=== PATIENT | female | born 1995 | race Caucasian/White ===

== ENCOUNTER 2022-12-11 17:13 | Outpatient (OUT) | payer BC, SELFPAY ==
[2022-12-11 15:40] VITALS: BP 106/65; PULSE 120; PULSE 129
[2022-12-11 16:30] LABS: Bilirubin Urine NEGATIVE (NEGATIVE); Blood Urine NEGATIVE (NEGATIVE); Clarity Urine CLEAR (CLEAR); Color Urine YELLOW (YELLOW); Glucose Urine UA NEGATIVE (NEGATIVE); Ketones Urine 15 mg/dL (NEGATIVE); Leukocyte Esterase Urine NEGATIVE (NEGATIVE); Nitrite Urine NEGATIVE (NEGATIVE); Protein Urine NEGATIVE (NEG/TRACE); Urobilinogen Urine 0.2 EU/dL (0.2-1.0)
[2022-12-11 16:36] LABS: Urine Microscopic Indicated NO
--- NOTE | 2022-12-11 18:27 | PC.NURSE ---
[address] Alanis's request. SVE 1/thick/posterior, no bleeding or discharge noted. labor precautions given to patient, verbalizes understanding. discharge instructions given and patient leaves per self
--- NOTE | 2022-12-11 18:29 | PC.NURSE ---
1635 FHR assessment: Baseline 150bpm Moderate variability Present accelerations Absent decelerations 2 contractions noted on monitor per external monitor. abdomen palpates mild, patient denies pain or discomfort.
== END 2022-12-11 17:15 | disposition home or self-care (01) ==
LOC: FBCO 17:14
PROVIDERS: Obstetrics & Gynecology; PCP Family Medicine; Visit Provider Obstetrics & Gynecology
DX: O26.899 Other specified pregnancy related conditions, unspecified trimester (principal)
CPT/HCPCS: 59025; 81003; G0378; G0379

== ENCOUNTER 2022-12-21 13:35 | Observation (INO) | payer BC, SELFPAY ==
[2022-12-21 14:04] VITALS: BP 106/66; PULSE 106
[2022-12-21 14:22] LABS: Bilirubin Urine NEGATIVE (NEGATIVE); Blood Urine NEGATIVE (NEGATIVE); Clarity Urine CLEAR (CLEAR); Color Urine LT. YELLOW (YELLOW); Glucose Urine UA NEGATIVE (NEGATIVE); Ketones Urine NEGATIVE (NEGATIVE); Leukocyte Esterase Urine SMALL (NEGATIVE); Nitrite Urine NEGATIVE (NEGATIVE); Protein Urine NEGATIVE (NEG/TRACE); Specific Gravity Urine <=1.005 (1.005-1.025); Urobilinogen Urine 0.2 EU/dL (0.2-1.0); pH Urine 6.5 (5.0-9.0)
[2022-12-21 14:25] LABS: Urine Microscopic Indicated YES
[2022-12-21 14:34] LABS: Bacteria Urine SMALL #/HPF (NONE SEEN); Cast Seen? NONE SEEN #/LPF (NONE SEEN); Crystals Seen? None Seen #/HPF (None Seen); Mucus Urine NONE SEEN (NONE SEEN); Squamous Epithelial Cell Urine MODERATE #/LPF (NONE/RARE); Urine Culture Indicated YES
== END 2022-12-21 15:51 | disposition home or self-care (01) ==
LOC: FBC 13:39
PROVIDERS: Admitting Provider Obstetrics & Gynecology; PCP Family Medicine; Visit Provider Obstetrics & Gynecology
DX: O26.899 Other specified pregnancy related conditions, unspecified trimester (principal); R10.9 Unspecified abdominal pain; Z3A.00 Weeks of gestation of pregnancy not specified
CPT/HCPCS: 59025; 81003; 81015; 87086; G0378; G0379

== ENCOUNTER 2022-12-28 20:50 | Outpatient (REF) | payer BC, SELFPAY | END 2022-12-28 20:51 | disposition home or self-care (01) | LOC: LAB 20:50 | PROVIDERS: PCP Family Medicine; Visit Provider Obstetrics & Gynecology | DX: Z34.93 Encounter for supervision of normal pregnancy, unspecified, third trimester (principal) | CPT/HCPCS: 87081 ==

== ENCOUNTER 2023-01-03 17:39 | Outpatient (OUT) | payer BC, SELFPAY ==
[2023-01-03 18:00] VITALS: BP 110/61; PULSE 118; RESP 16
[2023-01-03 18:09] LABS: Bilirubin Urine NEGATIVE (NEGATIVE); Blood Urine NEGATIVE (NEGATIVE); Clarity Urine CLEAR (CLEAR); Color Urine LT. YELLOW (YELLOW); Glucose Urine UA NEGATIVE (NEGATIVE); Ketones Urine NEGATIVE (NEGATIVE); Leukocyte Esterase Urine TRACE (NEGATIVE); Nitrite Urine NEGATIVE (NEGATIVE); Protein Urine NEGATIVE (NEG/TRACE); Specific Gravity Urine 1.015 (1.005-1.025); Urobilinogen Urine 0.2 EU/dL (0.2-1.0); pH Urine 6.5 (5.0-9.0)
[2023-01-03 18:12] LABS: Urine Microscopic Indicated YES
[2023-01-03 18:19] LABS: Amnisure NEGATIVE (NEGATIVE)
[2023-01-03 18:22] LABS: Bacteria Urine TRACE #/HPF (NONE SEEN); Mucus Urine TRACE (NONE SEEN); RBC Urine 0-2 #/HPF (0-2); WBC Urine 0-2 #/HPF (NONE SEEN)
[2023-01-03 18:23] LABS: Cast Seen? NONE SEEN #/LPF (NONE SEEN); Crystals Seen? None Seen #/HPF (None Seen); Squamous Epithelial Cell Urine FEW #/LPF (NONE/RARE); Urine Culture Indicated NO
--- NOTE | 2023-01-03 18:55 | PC.NURSE ---
reviewed labor precautions, reviewed when to return to hospital or call if unsure and wanting guidance. encouraged oral hydration and rest. patient verbalizes understanding
== END 2023-01-03 19:57 | disposition home or self-care (01) ==
LOC: FBC 19:13 → FBCO 20:01
PROVIDERS: PCP Family Medicine; Visit Provider Obstetrics & Gynecology
DX: O26.893 Other specified pregnancy related conditions, third trimester (principal); Z3A.36 36 weeks gestation of pregnancy
CPT/HCPCS: 81003; 81015; 84112; G0378; G0379

== ENCOUNTER 2023-01-12 18:25 | Inpatient (IN) | payer BC, SELFPAY ==
[2023-01-12 18:50] VITALS: BP 112/71; PULSE 103
[2023-01-12 19:00] LABS: Bilirubin Urine NEGATIVE (NEGATIVE); Blood Urine SMALL (NEGATIVE); Clarity Urine CLEAR (CLEAR); Color Urine LT. YELLOW (YELLOW); Glucose Urine UA NEGATIVE (NEGATIVE); Ketones Urine NEGATIVE (NEGATIVE); Leukocyte Esterase Urine MODERATE (NEGATIVE); Nitrite Urine NEGATIVE (NEGATIVE); Protein Urine NEGATIVE (NEG/TRACE); Specific Gravity Urine 1.025 (1.005-1.025); Urobilinogen Urine 0.2 EU/dL (0.2-1.0); pH Urine 6.5 (5.0-9.0)
[2023-01-12 19:04] LABS: Urine Microscopic Indicated YES
[2023-01-12 19:07] LABS: Bacteria Urine LARGE #/HPF (NONE SEEN); Crystals Seen? None Seen #/HPF (None Seen); Mucus Urine LARGE (NONE SEEN); RBC Urine 20-50 #/HPF (0-2); Squamous Epithelial Cell Urine MANY #/LPF (NONE/RARE)
[2023-01-12 19:08] LABS: Amnisure NEGATIVE (NEGATIVE); Cast Seen? NONE SEEN #/LPF (NONE SEEN); Urine Culture Indicated YES
--- NOTE | 2023-01-12 19:16 | W.PC.ACHO ---
Registration Status: ADM [place] Primary Language: Preferred Language: Report given to Ilana Jones RN. Care relinquished.
--- NOTE | 2023-01-12 20:24 | W.PC.ACHO ---
Registration Status: ADM [place] Primary Language: Preferred Language: Report received from Roger PEDRO RN at 0710.
[2023-01-13] VITALS (50 sets, daily range): BP systolic 91–118; BP diastolic 53–80; PULSE 68–118; RESP 16; TEMP 35.9–36.6
--- NOTE | 2023-01-13 07:18 | W.PC.ACHO ---
Registration Status: ADM [place] Primary Language: Preferred Language: Report given to Roger Pihlip RN. Active Medications Generic Name Dose Route Start Last Admin Trade Name Freq PRN Reason Stop Dose Admin Acetaminophen 1,000 mg 01/12/23 21:59 Acetaminophen 500 Mg Tablet PO Q6H PRN Pain
--- NOTE | 2023-01-13 08:14 | P.OBHP_ITS ---
OB - H&P: HPI History of Present Illness Chief complaint: Contractions : 2 Para: 1 Gestational age based on last menstrual period: iup at 38 1/7wks Narrative: advanced dilation History of Present Dating criteria: LMP confirmed by 1st trimester US care: good care Ultrasounds: normal 1st trimester US and normal mid trimester US Medical complications OB: none Review of Systems ROS Status of ROS 10 or more systems reviewed and unremarkable except as noted in history and below PFSH PFSH Medical History Surgical History (Updated 01/12/23 @ 21:36 by Kalie Jones) Family History (Updated 01/12/23 @ 21:38 by Kalie Jones) Mother Family history of hypertension Grandmother Family history of hypertension Family history of COPD (chronic obstructive pulmonary disease) Father Family history of stroke Social History (Updated 12/11/22 @ 16:12 by Lindy Cook) Within the past year, how often did you have a drink containing alcohol: never Within the past year, how often did you have six or more drinks on one occasion: never Score interpretation: A score less than 3 is consistent with normal alcohol consumption. Smoking status: Never smoker Non-prescribed substance use: denies use Meds Home Medications and Allergies Home Medications Medication Instructions Recorded Confirmed Type bupropion HCl 300 mg 24 hr tablet, 300 mg PO DAILY 12/11/22 01/12/23 History extended release citalopram 10 mg tablet 10 mg PO DAILY 12/11/22 01/12/23 History metoclopramide HCl 10 mg tablet 10 mg PO DAILY 12/11/22 01/12/23 History polysaccharide iron complex 180 mg 180 mg PO DAILY 12/11/22 01/12/23 History iron capsule (Pro Fe) Allergies Allergy/AdvReac Type Severity Reaction Status Date / Time amoxicillin Allergy Intermediate Rash Verified 01/12/23 21:33 tetracycline Allergy Mild Rash Verified 01/13/23 08:18 Exam Constitutional Vital Signs, click to edit/add: Last Vital Signs Temp 97.2 F L 01/13/23 07:36 Pulse 85 01/13/23 07:36 BP 112/70 01/13/23 07:36 Documenting provider has reviewed patient's vital signs: yes Common normals: no apparent distress Respiratory Common normals: normal respiratory effort and clear to auscultation bilaterally Cardio Common normals: regular rate and regular rhythm GI Common normals: Normal to inspection, nondistended, normoactive bowel sounds present Common normals: no CVA tenderness Extremity Common normals: no clubbing, cyanosis or edema and no calf tenderness Results Labs Labs: Urine 01/12/23 Range/Units 18:40 Urine Color Lt. yellow (YELLOW) Urine Clarity Clear (CLEAR) Urine pH 6.5 (5.0-9.0) Ur Specific [place] 1.025 (1.005-1.025) Urine Protein Negative (NEG/TRACE) mg/dL Urine Glucose (UA) Negative (NEGATIVE) mg/dL OB - A/P Assessment and Plan (1) Intrauterine normal : Plan iup at 38 1/7wks, advanced dilation-pit augmentation, arom, gbbs neg, routine labs, iv
[2023-01-13 08:59] LABS: Hematocrit 27.9 % (36.0-48.0); Mean Corpuscular HGB Conc 32.3 g/dL (29.9-35.2); Mean Corpuscular Hemoglobin 26.5 pg (26.7-34.0); Mean Corpuscular Volume 82.1 fL (81.0-99.0); Mean Platelet Volume 9.8 fL (9.5-13.5); Platelet Count 357 10^3/uL (150-450); Red Cell Distribution Width 13.5 % (11.0-15.0)
[2023-01-13] MEDS: OXYTOCIN 10 UNIT in 0.9 % SODIUM CHLORIDE 500 ML 6.012 UNIT IV (09:35)
[2023-01-13] MEDS: ROPIVACAINE HCL/PF 400 MG/200 ML PREMIX 6 MG EPIDURAL (10:50)
[2023-01-13] MEDS: 0.9 % SODIUM CHLORIDE 1,000 ML 1000 ML IV (10:50)
--- NOTE | 2023-01-13 15:09 | PM.OBPRCVD ---
Procedure Induction method: none Delivery augmentation: rupture of membranes and pitocin Delivery monitor: external FHT and external uterine Route of delivery: Episiotomy Description: none Laceration description: perineal - 2nd degree Delivery repair: Vicryl Estimated blood loss (mL): 250 Anesthesia type: Epidural Disposition: floor
[2023-01-13] MEDS: IBUPROFEN 600 MG TABLET PO ×2 (16:43→23:34)
--- NOTE | 2023-01-13 16:57 | PC.NURSE ---
epidural catheter removed, blue tip intact
--- NOTE | 2023-01-13 19:11 | W.PC.ACHO ---
Registration Status: ADM IN Primary Language: Portuguese Preferred Language: Portuguese Report given to Ilana Jones RN. Care relinquished. Active Medications Generic Name Dose Route Start Last Admin Trade Name Dot PRN Reason Stop Dose Admin Acetaminophen 1,000 mg 01/12/23 21:59 Acetaminophen 500 Mg Tablet PO Q6H PRN Pain Acetaminophen 650 mg 01/13/23 15:10 Acetaminophen 325 Mg Tablet PO Q6H PRN Mild Pain Al Hydroxide/Mg Hydroxide 2,400 mg 01/13/23 15:10 Magnesium Hydroxide 2,400 Mg/10 Ml Oral.Susp PO Q6H PRN Dyspepsia Benzocaine/Menthol 1 applic 01/13/23 15:10 Benzocaine/Menthol 85 Gram Bottle TOPICAL ONCE PRN Pain Carboprost Tromethamine 250 mcg 01/13/23 08:12 Carboprost Tromethamine 250 Mcg/Ml 1 Ml Vial IM Q15M PRN Bleeding Diphenhydramine HCl 25 mg 01/13/23 08:55 Diphenhydramine Hcl 50 Mg/Ml (1ml) Vial IV Q6H PRN Itching Docusate Sodium 100 mg 01/14/23 09:00 Docusate Sodium 100 Mg Capsule PO BID DIVINE Ephedrine Sulfate 5 mg 01/13/23 08:55 Ephedrine Sulfate 50 Mg/Ml Vial IV Q5M PRN Blood Pressure - Low Fentanyl Citrate 100 mcg 01/13/23 08:55 Fentanyl Citrate/Pf 100 Mcg/2 Ml Vial EPIDURAL Q4H PRN Pain Sodium Chloride 1,000 mls @ 125 mls/hr 01/13/23 08:15 Sodium Chloride 0.9% 1,000 Ml IV .Q8H DIVINE Oxytocin 10 unit/ Sodium 501 mls @ 6.012 mls/hr 01/13/23 08:15 01/13/23 09:35 Chloride IV 2 milliunit/min Q24H DIVINE 6.012 mls/hr Administration 2 MILLIUNIT/MIN Ropivacaine/Sodium Chloride 400 mg in 200 mls @ 6 mls/hr 01/13/23 09:00 01/13/23 10:50 Naropin 0.2% 400 Mg/200 Ml Bag EPIDURAL 6 mls/hr Q24H DIVINE 6 mls/hr Administration Oxytocin 20 unit/ Sodium 1,002 mls @ 125 mls/hr 01/13/23 15:15 01/13/23 15:30 Chloride IV 01/13/23 23:14 125 mls/hr Q8H DIVINE 125 mls/hr Administration Ibuprofen 600 mg 01/13/23 15:10 01/13/23 16:43 Ibuprofen 600 Mg Tablet PO 600 mg Q6H PRN Administration Moderate Pain Lidocaine 5 ml 01/13/23 08:12 Lidocaine Viscous 2% 15 Ml Topical Solution TOPICAL ONCE PRN Pain Lidocaine 1 ml 01/13/23 08:12 Lidocaine Hcl 1% 200 Mg/20 Ml Mdv INJ ONCE PRN Pain Lidocaine 5 ml 01/13/23 08:55 Lidocaine Hcl 2% Pf 100 Mg/5 Ml Vial INJ Q1H PRN Pain Methylergonovine Maleate 0.2 mg 01/13/23 08:12 Methylergonovine Maleate 0.2 Mg/Ml Ampule IM ONCE PRN Uterine Contractility/Contract Methylergonovine Maleate 0.2 mg 01/13/23 08:12 Methylergonovine Maleate 0.2 Mg Tablet PO Q4H PRN Uterine Contractility/Contract Misoprostol 600 mcg 01/13/23 08:12 Misoprostol 100 Mcg Tablet PO ONCE PRN Uterine Bleeding Misoprostol 800 mcg 01/13/23 08:12 Misoprostol 100 Mcg Tablet SL ONCE PRN Uterine Bleeding Misoprostol 1,000 mcg 01/13/23 08:12 Misoprostol 100 Mcg Tablet NC ONCE PRN Uterine Bleeding Nalbuphine HCl 10 mg 01/13/23 08:12 Nalbuphine Hcl 10 Mg/Ml Ampule IV Q3H PRN Pain Ondansetron HCl 4 mg 01/13/23 08:12 Ondansetron Pf 4 Mg/2 Ml Vial IV Q6H PRN Nausea And Vomiting Ondansetron HCl 4 mg 01/13/23 08:12 Ondansetron 4 Mg Rapdis Tablet SL Q6H PRN Nausea And Vomiting Oxytocin 10 unit 01/13/23 08:12 Oxytocin 100 Unit/10 Ml Vial IM ONCE PRN Uterine Bleeding Senna 17.2 mg 01/13/23 20:00 Sennosides 8.6 Mg Tablet PO QHS PRN Constipation Simethicone 80 mg 01/13/23 15:10 Simethicone 80 Mg Tab.Chew PO QID PRN Abdominal Distention Temazepam 15 mg 01/13/23 20:00 Temazepam 15 Mg Capsule PO BEDTIME PRN Sleep Witch Marli/Glycerin 1 each 01/13/23 15:10 Glycerin/Witch Marli 1 Each Jar TOPICAL ONCE PRN Pain Diet Category Date Time Status Regular Consistency Diet Diet 01/13/23 Dinner Active Consults Category Date Time Status Consult to Anesthesiology Routine Cons 01/13/23 Ordered IV Insertion/Site Date of IV Line Insertion [20g 01/13/23 right Hand] IV Insertion Time [20g right 08:30 Hand] Neurology Patient orientation (short person,place,time,situation list) Catheter Date Urinary Catheter Removed 01/13/23
[2023-01-13] MEDS: ACETAMINOPHEN 325 MG TABLET 650 MG PO (20:33)
[2023-01-14 03:10] VITALS: RESP 14; RESP 16
[2023-01-14] MEDS: ACETAMINOPHEN 325 MG TABLET 650 MG PO (03:10)
[2023-01-14 03:13] VITALS: TEMP 36.1
[2023-01-14 03:14] VITALS: BP 104/57; PULSE 65
[2023-01-14 06:14] LABS: Basophils Percent Auto 0.3 % (0.2-2.0); Eosinophils Absolute Auto 0.1 10^3/uL (0.0-0.7); Eosinophils Percent Auto 0.6 % (0.9-7.0); Hematocrit 26.2 % (36.0-48.0); Hemoglobin 8.3 g/dL (12.0-16.0); Immature Granulocytes Abs Auto 0.06 10^3/uL (0.00-0.03); Immature Granulocytes Pct Auto 0.5 % (0.0-0.5); Lymphocytes Absolute Auto 3.1 10^3/uL (1.2-3.8); Mean Corpuscular HGB Conc 31.7 g/dL (29.9-35.2); Mean Corpuscular Hemoglobin 26.3 pg (26.7-34.0); Mean Corpuscular Volume 83.2 fL (81.0-99.0); Mean Platelet Volume 9.9 fL (9.5-13.5); Monocytes Absolute Auto 0.6 10^3/uL (0.3-0.8); Neutrophils Absolute Auto 8.1 10^3/uL (1.4-6.5); Neutrophils Percent Auto 67.6 % (43.0-75.0); Platelet Count 304 10^3/uL (150-450); Red Blood Count 3.15 10^6/uL (4.20-5.40); Red Cell Distribution Width 13.5 % (11.0-15.0)
--- NOTE | 2023-01-14 07:20 | PC.NURSE ---
Care assumed after bedside report.
--- NOTE | 2023-01-14 07:27 | W.PC.ACHO ---
Registration Status: ADM IN Primary Language: Paraguayan Preferred Language: Paraguayan report given 0715 Active Medications Generic Name Dose Route Start Last Admin Trade Name Freq PRN Reason Stop Dose Admin Acetaminophen 1,000 mg 01/12/23 21:59 Acetaminophen 500 Mg Tablet PO Q6H PRN Pain Acetaminophen 650 mg 01/13/23 15:10 01/14/23 03:10 Acetaminophen 325 Mg Tablet PO 650 mg Q6H PRN Administration Mild Pain Al Hydroxide/Mg Hydroxide 2,400 mg 01/13/23 15:10 Magnesium Hydroxide 2,400 Mg/10 Ml Oral.Susp PO Q6H PRN Dyspepsia Benzocaine/Menthol 1 applic 01/13/23 15:10 Benzocaine/Menthol 85 Gram Bottle TOPICAL ONCE PRN Pain Carboprost Tromethamine 250 mcg 01/13/23 08:12 Carboprost Tromethamine 250 Mcg/Ml 1 Ml Vial IM Q15M PRN Bleeding Diphenhydramine HCl 25 mg 01/13/23 08:55 Diphenhydramine Hcl 50 Mg/Ml (1ml) Vial IV Q6H PRN Itching Docusate Sodium 100 mg 01/14/23 09:00 Docusate Sodium 100 Mg Capsule PO BID DIVINE Ephedrine Sulfate 5 mg 01/13/23 08:55 Ephedrine Sulfate 50 Mg/Ml Vial IV Q5M PRN Blood Pressure - Low Fentanyl Citrate 100 mcg 01/13/23 08:55 Fentanyl Citrate/Pf 100 Mcg/2 Ml Vial EPIDURAL Q4H PRN Pain Sodium Chloride 1,000 mls @ 125 mls/hr 01/13/23 08:15 Sodium Chloride 0.9% 1,000 Ml IV .Q8H DIVINE Oxytocin 10 unit/ Sodium 501 mls @ 6.012 mls/hr 01/13/23 08:15 01/13/23 09:35 Chloride IV 2 milliunit/min Q24H DIVINE 6.012 mls/hr Administration 2 MILLIUNIT/MIN Ropivacaine/Sodium Chloride 400 mg in 200 mls @ 6 mls/hr 01/13/23 09:00 01/13/23 10:50 Naropin 0.2% 400 Mg/200 Ml Bag EPIDURAL 6 mls/hr Q24H DIVINE 6 mls/hr Administration Ibuprofen 600 mg 01/13/23 15:10 01/13/23 23:34 Ibuprofen 600 Mg Tablet PO 600 mg Q6H PRN Administration Moderate Pain Lidocaine 5 ml 01/13/23 08:12 Lidocaine Viscous 2% 15 Ml Topical Solution TOPICAL ONCE PRN Pain Lidocaine 1 ml 01/13/23 08:12 Lidocaine Hcl 1% 200 Mg/20 Ml Mdv INJ ONCE PRN Pain Lidocaine 5 ml 01/13/23 08:55 Lidocaine Hcl 2% Pf 100 Mg/5 Ml Vial INJ Q1H PRN Pain Methylergonovine Maleate 0.2 mg 01/13/23 08:12 Methylergonovine Maleate 0.2 Mg/Ml Ampule IM ONCE PRN Uterine Contractility/Contract Methylergonovine Maleate 0.2 mg 01/13/23 08:12 Methylergonovine Maleate 0.2 Mg Tablet PO Q4H PRN Uterine Contractility/Contract Misoprostol 600 mcg 01/13/23 08:12 Misoprostol 100 Mcg Tablet PO ONCE PRN Uterine Bleeding Misoprostol 800 mcg 01/13/23 08:12 Misoprostol 100 Mcg Tablet SL ONCE PRN Uterine Bleeding Misoprostol 1,000 mcg 01/13/23 08:12 Misoprostol 100 Mcg Tablet UT ONCE PRN Uterine Bleeding Nalbuphine HCl 10 mg 01/13/23 08:12 Nalbuphine Hcl 10 Mg/Ml Ampule IV Q3H PRN Pain Ondansetron HCl 4 mg 01/13/23 08:12 Ondansetron Pf 4 Mg/2 Ml Vial IV Q6H PRN Nausea And Vomiting Ondansetron HCl 4 mg 01/13/23 08:12 Ondansetron 4 Mg Rapdis Tablet SL Q6H PRN Nausea And Vomiting Oxytocin 10 unit 01/13/23 08:12 Oxytocin 100 Unit/10 Ml Vial IM ONCE PRN Uterine Bleeding Senna 17.2 mg 01/13/23 20:00 Sennosides 8.6 Mg Tablet PO QHS PRN Constipation Simethicone 80 mg 01/13/23 15:10 Simethicone 80 Mg Tab.Chew PO QID PRN Abdominal Distention Temazepam 15 mg 01/13/23 20:00 Temazepam 15 Mg Capsule PO BEDTIME PRN Sleep Witch Marli/Glycerin 1 each 01/13/23 15:10 Glycerin/Witch Marli 1 Each Jar TOPICAL ONCE PRN Pain Diet Category Date Time Status Regular Consistency Diet Diet 01/13/23 Dinner Active IV Insertion/Site Date of IV Line Insertion [20g 01/13/23 right Hand] IV Insertion Time [20g right 08:30 Hand] Neurology Patient orientation (short person,place,time,situation list) Respiratory Oxygen Delivery Method Room Air Oxygen Delivery Method Room Air Catheter Date Urinary Catheter Removed 01/13/23
--- NOTE | 2023-01-14 07:47 | PM.OBPN ---
OB - PN: Subj Subjective Patient comments: no complaints and pain well controlled [place] status: doing well Exam Constitutional Vital Signs, click to edit/add: Last Vital Signs Temp 97.0 F L 01/14/23 03:13 Pulse 65 01/14/23 03:14 Resp 14 01/14/23 03:10 BP 104/57 L 01/14/23 03:14 O2 Del Method Room Air 01/14/23 03:10 Documenting provider has reviewed patient's vital signs: yes Common normals: no apparent distress Respiratory Common normals: normal respiratory effort and clear to auscultation bilaterally Cardio Common normals: regular rate and regular rhythm GI Common normals: Normal to inspection, nondistended, normoactive bowel sounds present Extremity Common normals: normal to inspection, no clubbing, cyanosis or edema and no calf tenderness Results Labs Labs: Short CBC 01/13/23 01/14/23 Range/Units 08:30 05:50 WBC 11.0 12.0 H (4.0-11.0) 10^3/uL Hgb 9.0 L 8.3 L (12.0-16.0) g/dL Hct 27.9 L 26.2 L (36.0-48.0) % Plt Count 357 304 (150-450) 10^3/uL OB - PN: A/P Assessment and Plan (1) Intrauterine normal : Plan - Vaginal Delivery day: 1 Plan: routine care, discharge home and follow up 6 weeks Time Spent with Patient Time: Total time spent is greater than 50% in coordination of care (as documented) at patient's floor/unit and/or counseling patient: Total time spent with greater than 50% in coordination of care (as documented) at patient's floor/unit and/or counseling patient: less than 15 minutes
[2023-01-14] MEDS: IBUPROFEN 600 MG TABLET PO ×2 (08:49→16:21)
[2023-01-14] MEDS: DOCUSATE SODIUM 100 MG CAPSULE PO (08:49)
[2023-01-14 09:00] VITALS: RESP 16
[2023-01-14 10:08] VITALS: BP 105/62; PULSE 94
[2023-01-14] MEDS: ACETAMINOPHEN 500 MG TABLET 1000 MG PO (13:15)
[2023-01-14 14:37] VITALS: BP 109/61; PULSE 91
--- NOTE | 2023-01-14 16:45 | PC.NURSE ---
Pt. declines Adacel. States she had with her daughter who is 3 1/2 years old and she will talk to [facility] to see if she needs it.
== END 2023-01-14 16:45 | disposition home or self-care (01) | DRG 807 ==
PROVIDERS: Admitting Provider Obstetrics & Gynecology; PCP Family Medicine; Visit Provider Obstetrics & Gynecology
DX: O70.1 Second degree perineal laceration during delivery (principal); Z37.0 Single live birth; Z3A.38 38 weeks gestation of pregnancy; Z86.39 Personal history of other endocrine, nutritional and metabolic disease; Z98.890 Other specified postprocedural states; Z79.899 Other long term (current) drug therapy; Z88.1 Allergy status to other antibiotic agents; Z82.3 Family history of stroke; Z82.5 Family history of asthma and other chronic lower respiratory diseases; Z82.49 Family history of ischemic heart disease and other diseases of the circulatory system
CPT/HCPCS: 36415; 59025; 59050; 59410; 81003; 81015; 84112; 85025; 85027; 86850; 86900; 86901; 87086; 96374; 96376; G0378

== ENCOUNTER 2023-01-18 08:36 | Outpatient (RCR) | payer BC, SELFPAY ==
[2023-01-18 11:53] VITALS: BP 115/82; PULSE 90; RESP 20; TEMP 36.6; O2SAT 97
--- NOTE | 2023-01-18 12:00 | PC.NURSE ---
Pt states no BM since delivery. States has IBS/constipation. Encouraged to continue stool softeners until BM. Also increased fluids, veggies and fruits. Verbalized understanding.
--- NOTE | 2023-01-18 12:06 | PC.NURSE ---
Discussed breast care at length and latching support. with suspected lip and tongue tie contributing to center of nipples being excoriated and bleeding. Able to reposition at breast for greater comfort. Reviewed referral for pediatric dentist to assess infant mouth. Parents engaged in care of baby and mom. no further questions. Pt describes vaginal bleeding as bright red, with large fist sized clot yesterday. Bleeding became heavier since. No saturating a pad but 50-75% full. Discussed contacting Dr Quigley if bleeding continues. Encouraged to rest more. No signs of acute bleeding at this time.
== END 2023-01-18 11:35 | disposition home or self-care (01) ==
LOC: FBCO 08:36
PROVIDERS: PCP Family Medicine; Visit Provider Obstetrics & Gynecology
DX: Z39.2 Encounter for routine postpartum follow-up (principal)

== ENCOUNTER → 2023-02-10 14:50 | Outpatient (RCR) | payer BC, SELFPAY ==
--- NOTE | 2023-02-10 17:16 | PC.NURSE ---
Arrives for support after oral revision 01/29/2023. Had both lip and tongue ties revised. Parents have been diligent in exercises post procedures. Today baby is noted to have tight oral posture, tongue more free and does move as expected with oral exam. Noted to have high arched palate. Baby latches well, swallows frequently and good jaw movement. Mom reports tight pressure from lower jaw and a slight pinch that coincides with click. Given suck exercises to do with infant 3 times daily or before feeds. Baby visibly relaxes with feeding when cheek massage given. Parents discussed bodywork for baby and are open to care transition coordinator. Give 10 signs your baby might need body work handout and baby displays 6-7 signs consistently. Parents doing well and are engaged and eager to work with to maintain .
== END | disposition home or self-care (01) ==
LOC: FBCO 17:00
PROVIDERS: PCP Family Medicine; Visit Provider Obstetrics & Gynecology
DX: Z39.1 Encounter for care and examination of lactating mother (principal)
CPT/HCPCS: G0463

== ENCOUNTER 2023-08-31 21:11 | Outpatient (REF) | payer BC, SELFPAY ==
[2023-09-04 15:10] LABS: Age Gdln ACOG Testing Note (.); IGP, rfx Aptima HPV ASCU Note (.)
== END 2023-08-31 21:12 | disposition home or self-care (01) ==
LOC: LAB 21:11
PROVIDERS: PCP Family Medicine; Visit Provider Obstetrics & Gynecology
DX: Z01.419 Encounter for gynecological examination (general) (routine) without abnormal findings (principal)
CPT/HCPCS: G0145

== ENCOUNTER 2025-01-10 15:07 | Outpatient (REF) | payer BC, SELFPAY ==
[2025-01-12 13:08] LABS: Age Gdln ACOG Testing Note (.); IGP, rfx Aptima HPV ASCU Note (.)
== END 2025-01-10 15:08 | disposition home or self-care (01) ==
LOC: LAB 15:07
PROVIDERS: PCP Family Medicine; Visit Provider Physician Assistant
DX: Z01.419 Encounter for gynecological examination (general) (routine) without abnormal findings (principal)
CPT/HCPCS: 88175